=== PATIENT | female | born 1965 | race Caucasian/White ===

== ENCOUNTER 2022-09-02 12:00 | Outpatient (CLI) | payer OTHER | END 2022-09-02 12:01 | disposition home or self-care (01) | LOC: CSHMAMMO 12:00 | PROVIDERS: ATTEND Family Medicine | DX: Z12.31 Encounter for screening mammogram for malignant neoplasm of breast (principal) | CPT/HCPCS: 77063; 77067 ==

== ENCOUNTER 2022-09-07 12:48 | Outpatient (CLI) | payer OTHER | END 2022-09-07 12:49 | disposition home or self-care (01) | LOC: CSHULT 12:48 | PROVIDERS: ATTEND Family Medicine | DX: N63.24 Unspecified lump in the left breast, lower inner quadrant (principal) ==

== ENCOUNTER 2022-12-31 08:23 | Day surgery (SDC) | payer OTHER ==
[2022-12-29 15:58] VITALS: BMI 30.2
[2022-12-31] MEDS ORDERED: Fentanyl 100 MCG/2 ML VIAL ONE (09:41)
[2022-12-31] MEDS ORDERED: Midazolam HCl 2 mg/2 ml Vial ONE (09:41)
[2022-12-31] MEDS ORDERED: PROPOFOL 20 ML ONE (09:41)
[2022-12-31] MEDS ORDERED: Ondansetron PF 4 MG/2 ML Vial ONE (09:42)
[2022-12-31] MEDS ORDERED: Dexamethasone 4 mg/ml Vial ONE (09:42)
[2022-12-31] MEDS ORDERED: Rocuronium Bromide 10 MG/ML (10ML VIAL) ONE (09:43)
[2022-12-31] MEDS ORDERED: CEFAZOLIN 2 GM VIAL ONE (10:12)
[2022-12-31] MEDS ORDERED: Bupivacaine HCl 0.5%/Epinephrine 1:200,000/PF 30 ml Vial ONE (10:12)
[2022-12-31] MEDS ORDERED: Isosulfan Blue 50 MG/5 ML VIAL ONE (10:12)
[2022-12-31] MEDS ORDERED: Ketorolac Tromethamine 30 MG/ML VIAL ONE (12:05)
[2022-12-31] MEDS ORDERED: Acetaminophen 325 MG TAB PO PRN (12:27)
[2022-12-31] MEDS ORDERED: traMADol HCl 50 MG TAB PO PRN (12:27)
[2022-12-31] MEDS ORDERED: HYDROcodone/Acetaminophen 5/325 mg Tablet ONE (12:32)
== END 2022-12-31 13:25 | disposition home or self-care (01) ==
LOC: CSHNM 08:23
PROVIDERS: ATTEND Surgery
PROC: C71LYZZ Planar Nuclear Medicine Imaging of Upper Chest Lymphatics using Other Radionuclide (ICD-10-PCS; principal; 2022-12-31)
PROC: 0HBU0ZZ Excision of Left Breast, Open Approach (ICD-10-PCS; principal; 2022-12-31)
PROC: 07B60ZZ Excision of Left Axillary Lymphatic, Open Approach (ICD-10-PCS; principal; 2022-12-31)
DX: C50.312 Malignant neoplasm of lower-inner quadrant of left female breast (principal); N60.12 Diffuse cystic mastopathy of left breast; N60.22 Fibroadenosis of left breast; N60.82 Other benign mammary dysplasias of left breast; E78.00 Pure hypercholesterolemia, unspecified; J44.9 Chronic obstructive pulmonary disease, unspecified; K21.9 Gastro-esophageal reflux disease without esophagitis; F17.210 Nicotine dependence, cigarettes, uncomplicated; Z79.899 Other long term (current) drug therapy; Z88.8 Allergy status to other drugs, medicaments and biological substances; Z88.5 Allergy status to narcotic agent
CPT/HCPCS: 76098; 78195; 88307; 88342; 93005; 93010; A9541; C1713; J1100; J1885; J2250; J2405; J2704; J3010; Q9968

== ENCOUNTER 2023-02-28 10:29 | Outpatient (CLI) | payer OTHER | END 2023-02-28 10:30 | disposition home or self-care (01) | LOC: CSHMAMMO 10:29 | PROVIDERS: ATTEND Internal Medicine | DX: Z13.820 Encounter for screening for osteoporosis (principal); C50.412 Malignant neoplasm of upper-outer quadrant of left female breast; M85.88 Other specified disorders of bone density and structure, other site; T38.6X5A Adverse effect of antigonadotrophins, antiestrogens, antiandrogens, not elsewhere classified, initial encounter | CPT/HCPCS: 77080 ==

== ENCOUNTER 2023-11-28 12:23 | Outpatient (CLI) | payer OTHER | END 2023-11-28 12:24 | disposition home or self-care (01) | LOC: CSHCP 12:23 | PROVIDERS: ATTEND Nurse Practitioner Family | DX: R06.02 Shortness of breath (principal); R94.2 Abnormal results of pulmonary function studies | CPT/HCPCS: 94060; 94664; 94726; 94729; 94760 ==

== ENCOUNTER 2024-08-13 09:26 | Outpatient (CLI) | payer OTHER | END 2024-08-13 09:27 | disposition home or self-care (01) | LOC: CSHULT 09:26 | PROVIDERS: ATTEND Internal Medicine | DX: K76.89 Other specified diseases of liver (principal); K76.0 Fatty (change of) liver, not elsewhere classified; N28.1 Cyst of kidney, acquired | CPT/HCPCS: 76705 ==